=== PATIENT | male | born 1975 | race Caucasian/White ===

== ENCOUNTER → 2016-10-23 | Outpatient (CLI) | payer BC ==
[~2016-10-23] MED LIST: ALEVE PO; ALLOPURINOL100 MG PO; BYDUREON P2 MG/0.65; CEPHALEXIN500 M1 PO; COLCHICINE0.6 MG PO; DIABETES PILL; FORTAMET1000 MG PO; LEVAQUIN 5500 MG/TAB PO; LISINOPRIL20 MG PO; PERCOCET 325 MG1 TA2 PO; PERCOCET 5/321 UDTAB PO; TRIGENTA; TYLENOL 500MG500 MG PO; ZYLOPRIM 100MG100 MG PO
== END ==
LOC: COL.LAB 09:41
DX: M79.604 Pain in right leg (principal); Z83.2 Family history of diseases of the blood and blood-forming organs and certain disorders involving the immune mechanism

== ENCOUNTER 2020-07-07 09:09 | Emergency (ER) | payer BC ==
[~2020-07-07] VITALS: Ht 188 cm; Wt 113.6 kg
[2020-07-07 09:18] VITALS: TEMP 98
[2020-07-07 10:07] LABS: BASO # 0.1 (0.0-0.2); EOS # 0.8 (0.0-0.7); EOS % 8.2 % (0-4.0); GRAN # 6.3 (1.4-6.5); HEMATOCRIT 44.6 % (42.0-52.0); HEMOGLOBIN 14.5 g/dl (13.5-18.0); LYMPH % 21.1 % (20.0-51.0); MEAN CELL VOLUME 90 fl (80.0-100.0); MEAN CORPUSCULAR HEMOGLOBIN 29 pg (27.0-31.0); MEAN CORPUSCULAR HGB CONC 33 g/dl (33.0-37.0); MEAN PLATELET VOLUME 10.5 fl (7.4-10.4); MONO # 0.4 (0.1-0.6); MONO % 4.4 % (1.7-9.3); PLATELET COUNT 263 K/mm3 (130-400); RED BLOOD COUNT 4.96 M/mm3 (4.20-5.60); REDCELL DISTRIBUTION WIDTH-CV 14.3 % (11.5-14.5)
[2020-07-07 10:13] LABS: ALANINE AMINOTRANSFERASE 24 U/L (4-49); ALBUMIN 4.1 gm/dL (3.5-5.0); ALKALINE PHOSPHATASE 111 U/L (50-136); ANION GAP 10 mmol/L (7-16); AST,SGOT 25 U/L (15-37); BILIRUBIN,TOTAL 0.7 mg/dL (0.0-1.0); BLOOD UREA NITROGEN 37 mg/dL (9-20); CALCIUM 9.6 mg/dL (8.4-10.2); CARBON DIOXIDE 24 mmol/L (22-30); CHLORIDE 106 mmol/L (98-107); CREATININE, serum 2.66 (0.66-1.25); GLUCOSE 105 mg/dL (74-106); POTASSIUM 5.2 mmol/L (3.4-5.0); SODIUM 140 mmol/L (137-145); TOTAL PROTEIN 7.2 gm/dL (6.4-8.2)
[2020-07-07 10:25] LABS: TROPONIN-I < 0.012 ng/mL (0.000-0.035)
[2020-07-07 14:31] VITALS: BP 155/89; PULSE 77
== END 2020-07-07 14:33 | disposition home or self-care (01) ==
LOC: COL.ER 09:09
PROVIDERS: Emergency Medicine
DX: R07.89 Other chest pain (principal); E11.22 Type 2 diabetes mellitus with diabetic chronic kidney disease; E11.69 Type 2 diabetes mellitus with other specified complication; E87.5 Hyperkalemia; N18.9 Chronic kidney disease, unspecified; M10.9 Gout, unspecified; Z88.6 Allergy status to analgesic agent; Z79.84 Long term (current) use of oral hypoglycemic drugs

== ENCOUNTER 2020-10-20 10:10 | Outpatient (RCR) | payer OTHER | END 2020-10-24 11:28 | disposition home or self-care (01) | LOC: WSOH 10:10 | DX: S50.12XA Contusion of left forearm, initial encounter (principal); E11.22 Type 2 diabetes mellitus with diabetic chronic kidney disease; N18.9 Chronic kidney disease, unspecified; M10.9 Gout, unspecified; Y99.0 Civilian activity done for income or pay; Z98.890 Other specified postprocedural states ==

== ENCOUNTER 2022-11-01 10:10 | Day surgery (SDC) | payer OTHER ==
[~2022-11-01] VITALS: Ht 188 cm; Wt 118.1 kg
[2022-11-01] MEDS ORDERED: OZEMPIC0.25 MG/01 SQ (11:43)
[2022-11-01 11:44] LABS: BASO # 0.1 K/mm3 (0.0-0.2); BASO % 1.1 % (0.0-2.0); EOS # 0.9 K/mm3 (0.0-0.7); EOS % 9.4 % (0.0-4.0); GRAN % 65.5 % (42.2-75.2); HEMATOCRIT 46.2 % (42.0-52.0); HEMOGLOBIN 15.3 g/dl (13.5-18.0); LYMPH # 1.7 K/mm3 (1.2-3.4); LYMPH % 18.7 % (20.0-51.0); MEAN CELL VOLUME 87 fl (80.0-100.0); MEAN CORPUSCULAR HEMOGLOBIN 29 pg (27-31); MEAN CORPUSCULAR HGB CONC 33 g/dl (33.0-37.0); MEAN PLATELET VOLUME 11.1 fl (7.4-10.4); MONO # 0.5 K/mm3 (0.1-0.6); PLATELET COUNT 201 K/mm3 (130-400); RED BLOOD COUNT 5.31 M/mm3 (4.20-5.60); REDCELL DISTRIBUTION WIDTH-CV 14.6 % (11.5-14.5)
[2022-11-01] MEDS ORDERED: NORVASC2.5 MG PO (11:44)
[2022-11-01] MEDS ORDERED: LIPITOR 40MG TA40 MG PO (11:44)
[2022-11-01] MEDS ORDERED: ASPIRIN 32325 MG/TAB PO (11:45)
[2022-11-01] MEDS ORDERED: GLUCOPHAGE1000 MG PO (11:45)
[2022-11-01] MEDS ORDERED: JANUVIA 100MG100 MG PO (11:46)
[2022-11-01] MEDS ORDERED: PRINIVIL2.5 MG PO (11:47)
[2022-11-01] MEDS ORDERED: FARXIGA10 PO (11:47)
[2022-11-01] MEDS ORDERED: LYRICA 100MG C100 M1 PO (11:48)
[2022-11-01] MEDS ORDERED: ZYLOPRIM 300MG300 MG PO (11:48)
[2022-11-01] MEDS ORDERED: VITAMIN D250 MCG PO (11:49)
[2022-11-01] MEDS ORDERED: VELTASSA16.8 GM PO (11:50)
[2022-11-01] MEDS ORDERED: MITIGARE0.6 MG (11:51)
[2022-11-01 11:52] VITALS: BP 150/82; PULSE 71; TEMP 97.8
[2022-11-01 12:13] LABS: CALCIUM 9.1 mg/dL (8.4-10.2); CREATININE, serum 3.74 mg/dL (0.72-1.25); POTASSIUM 5.3 mmol/L (3.5-4.5)
[2022-11-01] MEDS ORDERED: PERCOCET 325 MG1 TA2 PO (13:13)
[2022-11-01 15:25] VITALS: BP 154/90; PULSE 72
--- NOTE | 2022-11-01 15:25 | NUR ---
PATIENT RETURNED TO ROOM 6 PER CART FROM PACU ACCOMPANIED BY BI FAITH. AWAKE AND ALERT. STATES IS HAVING MILD ABDOMINAL SORENESS. IV FLUIDS INFUSING. ABDOMINAL INCISIONS X3 COVERED WITH COOK SET. SIDERAILS UP X2 AND CALL LIGHT IN REACH. FAMILY AT SIDE. TAKING ICE CHIPS. 1530 PATIENT ASSISTED UP TO THE BATHROOM AND VOIDS. GAIT STEADY WITH STANDBY ASSIST. IV CONVERTED TO INT.
[2022-11-01 15:40] VITALS: BP 132/71; PULSE 69
--- NOTE | 2022-11-01 15:40 | NUR ---
EATING MUFFIN AND SIPPING ON ENERGY DRINK. TALKING WITH FAMILY.
[2022-11-01 15:55] VITALS: BP 124/66; PULSE 68
--- NOTE | 2022-11-01 15:55 | NUR ---
RESTING COMFORTABLY AND DENIES PAIN OR NAUSEA.
[2022-11-01 16:10] VITALS: BP 112/55; PULSE 68
--- NOTE | 2022-11-01 16:10 | NUR ---
NO FURTHER COMPLAINTS. DENIES NEED FOR PAIN MEDICATION.
--- NOTE | 2022-11-01 16:15 | NUR ---
INT DISCONTINUED AND SITE IS FREE OF REDNESS. DISCHARGE INSTRUCTIONS REVIEWED AND VOICES UNDERSTANDING OF HOME CARES.
--- NOTE | 2022-11-01 16:30 | NUR ---
DISCHARGE INSTRUCTIONS SIGNED AND ASSISTED WITH DRESSING. TOLERATES ACTIVITY WELL.
--- NOTE | 2022-11-01 16:47 | NUR ---
PATIENT TAKEN TO PRIVATE VEHICLE PER WHEELCHAIR AND ASSISTED INTO CAR WITH INSTRUCTIONS IN HAND.
[2022-11-01 19:29] VITALS: BP 140/90; PULSE 75; TEMP 97.1
== END 2022-11-01 16:47 | disposition home or self-care (01) ==
LOC: SDCO 10:10
PROVIDERS: Surgery
DX: K40.90 Unilateral inguinal hernia, without obstruction or gangrene, not specified as recurrent (principal); D17.6 Benign lipomatous neoplasm of spermatic cord; Z87.891 Personal history of nicotine dependence
CPT/HCPCS: C1781; J0690; J1100; J2405; J2704; J2765; J3010; J7120

== ENCOUNTER → 2023-07-29 | Outpatient (CLI) | payer BC ==
[~2023-07-29] VITALS: Ht 188 cm; Wt 117.7 kg
[~2023-07-29] MED LIST changes: +ASPIRIN 32325 MG/TAB PO; +FARXIGA10 PO; +GLUCOPHAGE1000 MG PO; +JANUVIA 100MG100 MG PO; +LIPITOR 40MG TA40 MG PO; +LYRICA 100MG C100 M1 PO; +MASON NATURAL2000 IU PO; +MITIGARE0.6 MG PO; +NORVASC2.5 MG PO; +OSCAL 500 TAB500 MG PO; +OZEMPIC0.25 MG/01 SQ; +OZEMPIC2 MG/0.75 SQ; +PRINIVIL2.5 MG PO; +Regadenoson 0.08 MG/ML 5 ML SYRINGE IV SCH; +VELTASSA16.8 GM PO; +VITAMIN D250 MCG PO; +ZYLOPRIM 300MG300 MG PO
[2023-07-29 08:25] VITALS: BP 172/95; PULSE 79; TEMP 97.6
[2023-07-29 09:53] VITALS: BP 187/112; PULSE 77
[2023-07-29 09:54] VITALS: BP 174/75; PULSE 88
[2023-07-29 09:55] VITALS: BP 173/83; PULSE 85
[2023-07-29 09:56] VITALS: BP 184/76; PULSE 86
[2023-07-29 09:57] VITALS: BP 180/83; PULSE 83
== END ==
LOC: COL.VAS 08:01
DX: Z01.818 Encounter for other preprocedural examination (principal)
CPT/HCPCS: A9500-JZ; J2785

== ENCOUNTER 2023-10-03 15:35 | Emergency (ER) | payer BC ==
[~2023-10-03] VITALS: Ht 188 cm; Wt 118.2 kg
[~2023-10-03 15:35] MED LIST changes: -Regadenoson 0.08 MG/ML 5 ML SYRINGE IV SCH
[2023-10-03 15:40] VITALS: TEMP 98
[2023-10-03] MEDS ORDERED: diphenhydrAMINE 50 MG/ML 1 ML VIAL IV ONE (16:00)
[2023-10-03] MEDS ORDERED: methylPREDNISolone Sod Succ 125 MG/2 ML VIAL IV ONE (16:00)
[2023-10-03 16:12] LABS: BASO # 0.1 K/mm3 (0.0-0.2); BASO % 0.8 % (0.0-2.0); EOS # 0.7 K/mm3 (0.0-0.7); EOS % 6.9 % (0.0-4.0); GRAN # 7.3 K/mm3 (1.4-6.5); HEMATOCRIT 50.5 % (42.0-52.0); HEMOGLOBIN 15.8 g/dl (13.5-18.0); LYMPH # 1.8 K/mm3 (1.2-3.4); LYMPH % 17.5 % (20.0-51.0); MEAN CELL VOLUME 88 fl (80.0-100.0); MEAN CORPUSCULAR HEMOGLOBIN 28 pg (27-31); MEAN CORPUSCULAR HGB CONC 31 g/dl (33.0-37.0); MEAN PLATELET VOLUME 10.4 fl (7.4-10.4); MONO # 0.5 K/mm3 (0.1-0.6); MONO % 4.4 % (1.7-9.3); PLATELET COUNT 267 K/mm3 (130-400); RED BLOOD COUNT 5.74 M/mm3 (4.20-5.60); REDCELL DISTRIBUTION WIDTH-CV 16.2 % (11.5-14.5)
[2023-10-03 16:30] LABS: ALBUMIN 3.5 g/dL (3.5-5.0); CREATININE, serum 4.52 mg/dL (0.72-1.25); POTASSIUM 4.5 mEq/L (3.5-4.5); TOTAL PROTEIN 7.6 g/dl (6.2-8.1)
[2023-10-03 16:45] LABS: BILIRUBIN,TOTAL 0.4 mg/dL (0.2-1.2)
[2023-10-03 17:43] VITALS: BP 152/99; PULSE 87
== END 2023-10-03 17:43 | disposition home or self-care (01) ==
LOC: COL.ER 15:35
PROVIDERS: Family Medicine
DX: L50.9 Urticaria, unspecified (principal); E11.22 Type 2 diabetes mellitus with diabetic chronic kidney disease; N18.9 Chronic kidney disease, unspecified; R94.4 Abnormal results of kidney function studies; Z79.4 Long term (current) use of insulin
CPT/HCPCS: J1200; J2919

== ENCOUNTER 2024-03-11 07:22 | Day surgery (SDC) | payer BC ==
[~2024-03-11] VITALS: Ht 188 cm; Wt 116.9 kg
[2024-03-11 08:21] LABS: CALCIUM 9.9 mg/dL (8.4-10.2); CREATININE, serum 4.54 mg/dL (0.72-1.25); POTASSIUM 4.6 mEq/L (3.5-4.5)
[2024-03-11] MEDS ORDERED: VASCEPA1 GM PO (08:27)
[2024-03-11] MEDS ORDERED: MAGNESIUM GLYC100 MG PO (08:27)
[2024-03-11] MEDS ORDERED: CIALIS5 MG PO (08:28)
[2024-03-11] MEDS ORDERED: COLACE 100100 MG/CAP PO (08:28)
[2024-03-11] MEDS ORDERED: RENAGEL800 MG PO (08:29)
[2024-03-11] MEDS ORDERED: LANTUS100 U/ML SQ (08:30)
[2024-03-11] MEDS ORDERED: TUMS500 MG PO (08:30)
[2024-03-11] MEDS ORDERED: NOVOLOG 100U100 U/M1 SQ (08:31)
[2024-03-11] MEDS ORDERED: LR 1,000 ML IV ONE (08:45)
[2024-03-11] MEDS ORDERED: Rocuronium 50 MG/5 ML Multi-Dose VIAL ONE (08:57)
[2024-03-11] MEDS ORDERED: fentaNYL 50 MCG/ML 2 ML VIAL ONE (08:57)
[2024-03-11] MEDS ORDERED: NS 10 ML IV ONE (08:58)
[2024-03-11] MEDS ORDERED: Lidocaine PF 2% (20 MG/ML) 5 ML VIAL ONE (08:59)
[2024-03-11] MEDS ORDERED: Ondansetron 4 MG/2 ML VIAL ONE (09:02)
[2024-03-11] MEDS ORDERED: dexAMETHasone 10 MG/ML VIAL ONE (09:02)
[2024-03-11 09:06] VITALS: BP 167/73; PULSE 61; TEMP 97.6
[2024-03-11] MEDS ORDERED: NORCO 325 MG-51 TAB PO (09:40)
[2024-03-11] MEDS ORDERED: Ondansetron 4 MG/2 ML VIAL IV PRN ×2 (10:00→10:45)
[2024-03-11] MEDS ORDERED: hydrALAZINE 20 MG/ML 1 ML VIAL IV PRN (10:00)
[2024-03-11] MEDS ORDERED: Morphine 2 MG/1 ML VIAL [PACU/SDC ONLY] IV PRN (10:00)
[2024-03-11] MEDS ORDERED: droPERidol 2.5 MG/ML 2 ML VIAL IV PRN (10:00)
[2024-03-11] MEDS ORDERED: HYDROmorphone 1 MG/1 ML SYRINGE [PACU/SDC ONLY] IV PRN (10:00)
[2024-03-11] MEDS ORDERED: fentaNYL 50 MCG/ML 1 ML SYRINGE/VIAL [PACU/SDC ONLY] IV PRN (10:00)
[2024-03-11] MEDS ORDERED: Acetaminophen 325 MG TAB PO PRN (10:45)
[2024-03-11] MEDS ORDERED: Albuterol 0.083% Neb Soln 2.5 MG/3 ML UD IH ONE (11:00)
[2024-03-11 11:10] VITALS: BP 146/75; PULSE 65; TEMP 97.2
[2024-03-11 11:25] VITALS: BP 135/71; PULSE 68
[2024-03-11 11:40] VITALS: BP 116/80; PULSE 67
[2024-03-11 11:58] VITALS: BP 152/71; PULSE 61; TEMP 97
--- NOTE | 2024-03-11 12:24 | NUR ---
1110: PT TO BAY 1 VIA COT FROM PACU. ALERT AND ORIENTED. REPORT RECEIVED FROM VIANNEY GARCIA. VSS. BREATHING EVEN AND UNLABORED ON 1L O2 VIA NC. DRESSING TO PERITONEAL CATHETER C/D/I. 3 ABD LAPROSCOPIC SITES C/D/I AND CLOSED WITH SKIN GLUE. PT TOLERATING WATER AND DENIES NAUSEA. PAIN IS MANAGABLE AND DENIES NEED FOR PAIN MEDICATION. REQUESTING MUFFIN. NO FURTHER NEEDS NOTED. RESTING IN COT. CALL LIGHT IN REACH. FAMILY AT BEDSIDE. 1125: ALERT AND ORIENTED. BREATHING EVEN AND UNLABORED ON RA. VSS DRESSSING AND LAPROSCOPIC SITES REMAIN C/D/I. DENIES PAIN AND NAUSEA. TOLERATING FOOD AND DRINK. NO FURTHER NEEDS NOTED. RESTING IN COT. CALL LIGHT IN REACH. FAMILY AT BEDSIDE. 1140: ALERT AND ORIENTED. BREATHING EVEN AND UNLABORED ON RA. VSS. DRESSING AND LAPROSCOPIC SITES REMAIN C/D/O. DENIES PAIN AND NAUSEA. CONTINUES TO TOLERATE FOOD AND DRINK. NO FURTHER NEEDS NOTED. RESTING IN COT. CALL LIGHT IN REACH. FAMILY AT BEDSIDE. 1150: PT AMBULATED TO BATHROOM WITH STAND-BY ASSIST. 1200: DISCHARGE EDUCATION COMPLETE AT THIS TIME. QUESTIONS WELCOMED AND ANSWERED. PT AND FAMILY STATED UNDERSTANDING OF DISCHARGE INSTRUCTIONS. DISCHRGE PAPERWORK GIVEN TO PT. IV DC'D. PT MARILYN STALLINGS, TO ASSIST PT WITH DRESSING. 1210: PT AMBULATED INDEPENDENTLY FROM COT TO WHEELCHAIR. PT OFF UNIT AT THIS TIME. DISCHARGED TO HOME VIA PRIVATE VEHCILE WITH MARILYN STALLINGS.
== END 2024-03-11 12:10 | disposition home or self-care (01) ==
LOC: SDCO 07:22
PROVIDERS: Nurse Anesthetist, Certified Registered
DX: I12.0 Hypertensive chronic kidney disease with stage 5 chronic kidney disease or end stage renal disease (principal); N18.5 Chronic kidney disease, stage 5; E11.22 Type 2 diabetes mellitus with diabetic chronic kidney disease; E66.9 Obesity, unspecified; Z79.4 Long term (current) use of insulin; Z79.85 Long-term (current) use of injectable non-insulin antidiabetic drugs; Z87.891 Personal history of nicotine dependence
CPT/HCPCS: C1750; J0690; J1100; J1171; J2405; J2704; J3010; J7120